=== PATIENT | male | born 1980 | race Caucasian/White ===

== ENCOUNTER 2016-11-07 11:49 | Emergency (ER) | payer BC ==
[2016-11-07 13:26] VITALS: BP 131/88
--- NOTE | 2016-11-07 14:04 | UC ---
Skin Complaint HPI - HPI Summary HPI Summary: patient started getting a red bump on the right side of his neck after shaving, it has just been getting bigger and painful. - History of Current Complaint Chief Complaint: UCSkin Time Seen by Provider: 11/07/16 13:55 Stated Complaint: SKIN COMPLAINT Hx Obtained From: Patient Onset/Duration: Sudden Onset, Lasting Days Skin Exposure Onset/Duration: Days Ago Timing: Constant Onset Severity: Mild Current Severity: Moderate Location: Discrete Character: Swelling, Redness, Raised, Painful Aggravating: Touch Alleviating: Nothing Related History: Other: - shaving - Allergy/Home Medications Allergies/Adverse Reactions: Allergies Allergy/AdvReac Type Severity Reaction Status Date / Time No Known Allergies Allergy Verified 11/07/16 13:20 Review of Systems Constitutional: Negative Skin: Other - small 2.5 cm diamerter induration on the right mandible Eyes: Negative ENT: Negative Respiratory: Negative Cardiovascular: Negative Gastrointestinal: Negative Genitourinary: Negative Motor: Negative Neurovascular: Negative Musculoskeletal: Negative Neurological: Negative Psychological: Negative All Other Systems Reviewed And Are Negative: Yes PMH/Surg Hx/FS Hx/Imm Hx Previously Healthy: Yes Endocrine History Of: Denies: Diabetes, Thyroid Disease, Hyperthyroidism, Hypothyroidism, Dyslipidemia Cardiovascular History Of: Denies: Cardiac Disorders, Hypertension, Pacemaker/ICD, Myocardial Infarction , Congestive Heart Failure, Atrial Fibrillation, Deep Vein Thrombosis, Bleeding Disorders Respiratory History Of: Denies: COPD, Asthma, Bronchitis, Pneumonia, Pulmonary Embolism GI/ History Of: Denies: Gastroesophageal Reflux, Ulcer, Gastrointestinal Bleed, Gall Bladder Disease, Kidney Stones, Diverticulitis, Renal Disease, Urosepsis Neurological History Of: Denies: TIA, CVA, Dementia, Seizures, Migraine Psychological History Of: Denies: Anxiety, Depression, Bipolar Disorder, Schizophrenia, Post Traumatic Stress Disorder Cancer History Of: Denies: Lung Cancer, Colorectal Cancer, Breast Cancer, Prostate Cancer, Cervical Cancer - Surgical History Surgical History: Yes Surgery Procedure, Year, and Place: pyloric stenosis repair as an infant - Family History Known Family History: Positive: None Negative: Cardiac Disease, Hypertension - Social History Alcohol Use: None Substance Use Type: None Smoking Status (MU): Never Smoked Tobacco Have You Smoked in the Last Year: No Physical Exam Triage Information Reviewed: Yes Appearance: Well-Appearing, Well-Nourished, Pain Distress Vital Signs: Initial Vital Signs Temp 97.5 F 04/02/17 13:21 Pulse 75 11/07/16 13:21 Resp 16 11/07/16 13:21 BP 131/88 11/07/16 13:21 Pulse Ox 99 11/07/16 13:21 Vital Signs Reviewed: Yes Eye Exam: Normal Eyes: Positive: Conjunctiva Clear ENT Exam: Normal ENT: Positive: Hearing grossly normal, Pharynx normal, TMs normal Dental Exam: Normal Neck exam: Normal Neck: Positive: Supple, Nontender, No Lymphadenopathy Respiratory Exam: Normal Respiratory: Positive: Chest non-tender, Lungs clear, Normal breath sounds Cardiovascular Exam: Normal Cardiovascular: Positive: RRR, No Murmur, Pulses Normal Abdominal Exam: Normal Abdomen Description: Positive: Nontender, No Organomegaly, Soft Bowel Sounds: Positive: Present Musculoskeletal Exam: Normal Musculoskeletal: Positive: Strength Intact, ROM Intact, No Edema Neurological Exam: Normal Neurological: Positive: Alert, Muscle Tone Normal Psychological Exam: Normal Skin: Positive: Other - 2.5 cm induration red, no fluctuance noted, painful. Course/Dx - Course Course Of Treatment: hx obtained, exam performed, meds reviewed and prescribed. - Differential Diagnoses - Skin Complaint Differential Diagnoses: Abscess, MRSA, Urticaria - Diagnoses Provider Diagnoses: follicullitis Discharge - Discharge Plan Condition: Stable Disposition: HOME Patient Education Materials: Abscess (ED) Additional Instructions: take the medication as prescribed. Warm compresses multiple times a day to the area. It may come to a head and start to drain, just keep area clean and dry and finish meds, follow up if area is not responding to antibiotics.
== END 2016-11-07 14:12 | disposition home or self-care (01) ==
LOC: UCCORT 11:49
DX: L73.9 Follicular disorder, unspecified (principal)
CPT/HCPCS: 99212; G0463

== ENCOUNTER 2017-12-29 20:27 | Emergency (ER) | payer BC ==
[2017-12-29 21:29] VITALS: BP 125/91
--- NOTE | 2017-12-29 22:25 | UC ---
Skin Complaint HPI - HPI Summary HPI Summary: Embedded tick found tonight, outer upper left thigh. 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 Tick not removed, not engorged. Came for removal of tick - History of Current Complaint Chief Complaint: UCSkin Time Seen by Provider: 12/29/17 22:15 Stated Complaint: TICK BITE Hx Obtained From: Patient Onset/Duration: Sudden Onset Skin Exposure Onset/Duration: Hours Ago - 1 Pain Intensity: 0 - Allergy/Home Medications Allergies/Adverse Reactions: Allergies Allergy/AdvReac Type Severity Reaction Status Date / Time No Known Allergies Allergy Verified 12/29/17 21:30 Home Medications: Home Medications NK [No Home Medications Reported] 12/29/17 [History Confirmed 12/29/17] Review of Systems Constitutional: Negative Skin: Other - tick upper left thigh Eyes: Negative ENT: Negative Respiratory: Negative Cardiovascular: Negative Gastrointestinal: Negative Genitourinary: Negative Motor: Negative Neurovascular: Negative Musculoskeletal: Negative Neurological: Negative Psychological: Negative Is Patient Immunocompromised?: No All Other Systems Reviewed And Are Negative: Yes PMH/Surg Hx/FS Hx/Imm Hx Previously Healthy: Yes - Surgical History Surgical History: Yes Surgery Procedure, Year, and Place: pyloric stenosis repair as an infant - Family History Known Family History: Positive: None Negative: Cardiac Disease, Hypertension - Social History Occupation: Employed Full-time Alcohol Use: Occasionally Substance Use Type: None Smoking Status (MU): Never Smoked Tobacco Have You Smoked in the Last Year: No - Immunization History Most Recent Tetanus Shot: UTD Physical Exam Triage Information Reviewed: Yes Appearance: Well-Appearing Vital Signs: Initial Vital Signs Temp 97.7 F 12/29/17 21:25 Pulse 67 12/29/17 21:25 Resp 16 12/29/17 21:25 BP 125/91 12/29/17 21:25 Pulse Ox 100 12/29/17 21:25 Skin Exam: Other - Non-engorged tick removed from left outer thigh, no induration or erythema. Removed intact with tick twister and forceps. Patient declined taking tick for testing Course/Dx - Course Course Of Treatment: tick removed. prohylaxis not indicated based on lack of engorgement and lack of local findings - Differential Diagnoses - Skin Complaint Differential Diagnoses: Tick Born Illness, Other - tick bite - Diagnoses Provider Diagnoses: removal of tick Discharge - Sign-Out/Discharge Documenting (check all that apply): Discharge/Admit/Transfer - Discharge Plan Condition: Stable Disposition: HOME Patient Education Materials: Tick Bite (ED), Lyme Disease (ED) Referrals: Santos Martell MD [Primary Care Provider] - Additional Instructions: Monitor the area of the bite for development of rash, but this is a low likelihood risk of Lyme disease based on short duration of exposure. - Billing Disposition and Condition Condition: STABLE Disposition: HOME
== END 2017-12-29 22:36 | disposition home or self-care (01) ==
LOC: UCCORT 20:27
DX: S70.362A Insect bite (nonvenomous), left thigh, initial encounter (principal); W57.XXXA Bitten or stung by nonvenomous insect and other nonvenomous arthropods, initial encounter; Y92.9 Unspecified place or not applicable
CPT/HCPCS: 99211; G0463

== ENCOUNTER 2019-03-20 09:40 | Emergency (ER) | payer BC ==
[2019-03-20 10:07] VITALS: BP 142/103
--- NOTE | 2019-03-20 10:20 | UC ---
UC General HPI - HPI Summary HPI Summary: day 5 of sinus congestion with pain and pressure plus cough, congestion and wheezing. no cp, sob, f/c's or asthma. no hx sinus surgery or bloody-purulent drainage. self txing with a decongestant. - History of Current Complaint Chief Complaint: UCGeneralIllness Stated Complaint: SINUS CONCERN Time Seen by Provider: 03/20/19 10:09 Hx Obtained From: Patient Onset/Duration: Gradual Onset Timing: Constant Pain Intensity: 5 Associated Signs & Symptoms: Positive: Headache - Allergy/Home Medications Allergies/Adverse Reactions: Allergies Allergy/AdvReac Type Severity Reaction Status Date / Time No Known Allergies Allergy Verified 03/20/19 10:07 Home Medications: Home Medications D-Methorphan/PE/Acetaminophen [Cold Multi-Symptom Caplet] 1 tab PO ONCE [History Confirmed 03/20/19] PMH/Surg Hx/FS Hx/Imm Hx Cardiovascular History: Hypertension - borderline - Surgical History Surgical History: Yes Surgery Procedure, Year, and Place: pyloric stenosis repair as an infant - Family History Known Family History: Positive: None Negative: Cardiac Disease, Hypertension - Social History Alcohol Use: Occasionally Substance Use Type: None Smoking Status (MU): Never Smoked Tobacco Have You Smoked in the Last Year: No - Immunization History Most Recent Tetanus Shot: UTD Review of Systems All Other Systems Reviewed And Are Negative: Yes Constitutional: Negative: Fever, Chills ENT: Positive: Nasal Discharge, Sinus Congestion, Sinus Pain/Tenderness. Negative: Sore Throat, Ear Ache Respiratory: Positive: Cough. Negative: Shortness Of Breath Cardiovascular: Negative: Palpitations, Chest Pain Physical Exam Triage Information Reviewed: Yes Appearance: Well-Appearing Vital Signs: Initial Vital Signs Temp 97.9 F 03/20/19 10:03 Pulse 66 03/20/19 10:03 Resp 16 03/20/19 10:03 BP 142/103 03/20/19 10:03 Pulse Ox 98 03/20/19 10:03 Vital Signs Reviewed: Yes Eyes: Positive: Conjunctiva Clear ENT: Positive: Pharynx normal, Nasal congestion, Nasal drainage - clear, TMs normal Neck: Positive: Supple, Nontender, No Lymphadenopathy Respiratory: Positive: No respiratory distress, Other: - Rhonchi and expiratory wheezes throughout R lung. L lung is clear. Cardiovascular: Positive: RRR, No Murmur Abdomen Description: Positive: Nontender Musculoskeletal: Positive: ROM Intact Neurological: Positive: Alert Psychological: Positive: Normal Response To Family Skin Exam: Normal Diagnostics - Radiology No standard instances Radiology Interpretation Completed By: Radiologist - IMPRESSION: NO EVIDENCE FOR ACTIVE CARDIOPULMONARY DISEASE. Re-Evaluation - Re-Evaluation First Eval Re-Evaluation Time: 10:48 Change: Improved - wheezing nearly cleared. less npc. Course/Dx - Diagnoses Provider Diagnosis: URI (upper respiratory infection), Bronchitis Discharge - Sign-Out/Discharge Documenting (check all that apply): Patient Departure All imaging exams completed and their final reports reviewed: Yes - Discharge Plan Condition: Stable Disposition: HOME Prescriptions: Albuterol HFA INHALER* [Ventolin HFA Inhaler*] 2 puff INH Q6H #1 mdi predniSONE TAB* [Deltasone 20 MG TAB*] 40 mg PO DAILY 5 Days #10 tab Patient Education Materials: Upper Respiratory Infection (DC), Acute Bronchitis (ED), Hypertension (ED) Referrals: Santos Martell MD [Primary Care Provider] - 7 Days Additional Instructions: 1. stop the oral decongestant. 2. start over the counter Afrin nasal decongestant per label x 3 days then STOP it. 3. have your BP rechecked on the follow up visit. - Billing Disposition and Condition Condition: STABLE Disposition: Home
[2019-03-20] MEDS ORDERED: Albuterol 2.5 MG/3 ML NEB.SOL* (0.083%) INH ONE (10:21)
== END 2019-03-20 11:04 | disposition home or self-care (01) ==
LOC: UCCORT 09:40
DX: J06.9 Acute upper respiratory infection, unspecified (principal); J40 Bronchitis, not specified as acute or chronic; R03.0 Elevated blood-pressure reading, without diagnosis of hypertension
CPT/HCPCS: 71046; 99212; G0463